=== PATIENT | female | born 1955 | race Caucasian/White ===

== ENCOUNTER 2016-10-01 12:00 | Emergency (ER) | payer OTHER ==
[~2016-10-01] VITALS: Ht 165.1 cm; Wt 54.4 kg
[2016-10-01 12:03] VITALS: BP 131/50
== END 2016-10-01 13:28 | disposition home or self-care (01) ==
LOC: ER 12:00
DX: S01.01XA Laceration without foreign body of scalp, initial encounter (principal); W07.XXXA Fall from chair, initial encounter; Y93.89 Activity, other specified; Y92.89 Other specified places as the place of occurrence of the external cause; Y99.9 Unspecified external cause status

== ENCOUNTER → 2016-12-04 | Outpatient (CLI) | payer OTHER | LOC: RAD 01:50 | DX: Z12.31 Encounter for screening mammogram for malignant neoplasm of breast (principal) ==

== ENCOUNTER → 2018-01-11 | Outpatient (CLI) | payer OTHER | LOC: RAD 01:20 | DX: Z12.31 Encounter for screening mammogram for malignant neoplasm of breast (principal) ==

== ENCOUNTER → 2018-05-02 | Outpatient (CLI) | payer OTHER ==
[~2018-05-02] VITALS: Ht 165.1 cm; Wt 56.7 kg
[~2018-05-02] MED LIST: CALCIUM 500 +1 EAC5 PO; RALOXIFENE HCL60 MG PO
--- NOTE | ~2018-05-02 | PATH ---
[facility] [address] [place] [address] PATHOLOGY RPT PROCEDURE Name: KELY GRAJEDA Room #: REG [facility] M.Mattie.#: [id number] Admission: 05/02/18 Date of : 53 Discharge: Report #: [id number] Path Case #: [id number] [facility] Accession Number: [id number] . 01 Material submitted: . BX OF POLYP AT SIGMOID COLON . 01 Clinical history: . Screening . 02 Diagnosis: Polyp, at sigmoid, endoscopic biopsy: - Hyperplastic polyp and a lymphoid aggregate. - Negative for dysplasia. (IUV:editorial specialist; 05/03/2018) MBR/05/03/2018 . 02 Electronically signed: . Maria Dolores Stanley MD, Pathologist NPI- [id number] . 01 Gross description: . The specimen is received in formalin, labeled "Grajeda, Kely, BX of polyp at sigmoid", is a hernandez polypoid soft tissue 0.6 cm in greatest dimension, entirely submitted in A1. (SWS; 05/02/2018) SHS/SHS . 02 Pathologist provided ICD-10: K63.5 . 02 CPT . 452080 Specimen Comment: A courtesy copy of this report has been sent to Specimen Comment: [phone], , . Specimen Comment: Report sent to ,DR NG / DR BROWN Performed at: [address], [place] [id number] MD Chuy Rai MD Phone: [phone] Performed at: [address] [id number] MD Maria Dolores Stanley MD Phone: [phone]
== END | disposition home or self-care (01) ==
LOC: GI 06:40
DX: Z12.11 Encounter for screening for malignant neoplasm of colon (principal); K63.5 Polyp of colon; Z98.890 Other specified postprocedural states; Z85.828 Personal history of other malignant neoplasm of skin; Z79.899 Other long term (current) drug therapy
CPT/HCPCS: 62110; 62900

== ENCOUNTER → 2019-01-18 | Outpatient (CLI) | payer OTHER | LOC: RAD 02:56 | DX: Z12.31 Encounter for screening mammogram for malignant neoplasm of breast (principal) ==

== ENCOUNTER → 2019-06-30 | Outpatient (CLI) | payer OTHER | LOC: NUC 06-28 10:04 | DX: Z78.0 Asymptomatic menopausal state (principal); N91.2 Amenorrhea, unspecified ==

== ENCOUNTER → 2020-02-06 | Outpatient (CLI) | payer OTHER | LOC: RAD 10:08 | PROVIDERS: ATTEND Nurse Practitioner | DX: Z12.31 Encounter for screening mammogram for malignant neoplasm of breast (principal) ==

== ENCOUNTER → 2021-02-26 | Outpatient (CLI) | payer OTHER | LOC: BC 15:11 | PROVIDERS: ATTEND Nurse Practitioner | DX: Z12.31 Encounter for screening mammogram for malignant neoplasm of breast (principal); N63.20 Unspecified lump in the left breast, unspecified quadrant ==

== ENCOUNTER → 2021-02-27 | Outpatient (CLI) | payer OTHER | LOC: ULTRA 14:32 | PROVIDERS: ATTEND Nurse Practitioner | DX: N63.20 Unspecified lump in the left breast, unspecified quadrant (principal) ==

== ENCOUNTER → 2021-03-10 | Outpatient (CLI) | payer OTHER ==
--- NOTE | 2021-03-12 13:08 | PATH ---
[facility] [address] [place] [address] PATHOLOGY RPT PROCEDURE Name: SHANITA GRAJEDALEON Orellana Room #: REG [facility] M.R.#: [id number] Admission: 03/10/21 Date of : 53 Discharge: Report #: [id number] Path Case #: [id number] [facility] Accession Number: [id number] . 01 Material submitted: . breast - LEFT BREAST NODULE. Modifiers: left . 01 Clinical history: . STEREOTACTIC LEFT MEDIAL INFERIOR BREAST NODULE . 02 Diagnosis: Breast, left medial inferior breast nodule, stereotactic needle core biopsy: - Fibrocystic changes with stromal fibrosis, extensive columnar cell change as well as hyperplasia and dilated ducts. - Calcifications within benign breast tissue. - Negative for atypia or malignancy. (IUV:maciel; 03/11/2021) QMS 03/11/2021 1240 Local . 02 Comment: Dr. Chayo Fried has seen sales representative facility services slides of this case and concurs with the diagnosis rendered. (IUV:maciel; 03/11/2021) . 02 Electronically signed: . Maria Dolores Stanley MD, Pathologist NPI- [id number] . 01 Gross description: . The specimen is received in formalin, labeled "Kely Grajeda". No source is listed on the container. The source is designated on the requisition as "left breast nodule". Received are 3 needle cores of fibrofatty tissue measuring 5.4 x 1.2 x 0.4 cm in aggregate dimensions. The specimen is submitted entirely in cassettes A1-A3. The specimen is collected at 1400 and placed into formalin at 1411 on 03/10/21. The specimen is removed from formalin at 2340 on 03/10/21. The total formalin fixation time is 9 hours and 29 minutes. ([facility]; 03/10/2021) NRI/NRI 03/10/2021 2102 Local . 02 Pathologist provided ICD-10: N60.12, N60.32, N62 . 02 CPT . 368468 Specimen Comment: A courtesy copy of this report has been sent to [phone], [place] [address] PATHOLOGY RPT PROCEDURE Name: KELY GRAJEDA Room #: REG CLMike Angel#: [id number] Admission: 03/10/21 Date of : 53 Discharge: Report #: [id number] Path Case #: [id number] Specimen Comment: [phone] Specimen Comment: Report sent to / DR BROWN Performed at: [address], [place], [place] [id number] MD Pedro Pinto MD Phone: [phone] Performed at: [address], [place], [place] [id number] MD Maria Dolores Stanley MD Phone: [phone]
== END | disposition home or self-care (01) ==
LOC: RAD 13:16
PROVIDERS: ATTEND Nurse Practitioner
DX: N60.32 Fibrosclerosis of left breast (principal); N62 Hypertrophy of breast; R92.1 Mammographic calcification found on diagnostic imaging of breast